=== PATIENT | male | born 1945 | race Hispanic/Latino ===

== ENCOUNTER → 2019-06-18 | Outpatient (CLI) | payer OTHER ==
[~2019-06-18] MED LIST: REGADENOSON 0.4 MG/5 ML PF SYG IVP SCH
== END | disposition home or self-care (01) ==
LOC: SHCH 07:44
PROVIDERS: ATTEND Internal Medicine Cardiovascular Disease
DX: I25.10 Atherosclerotic heart disease of native coronary artery without angina pectoris (principal); R60.9 Edema, unspecified; R07.9 Chest pain, unspecified
CPT/HCPCS: 78452; 93017; A9500 ×2; J2785; 96374

== ENCOUNTER 2020-07-21 06:49 | Day surgery (SDC) | payer OTHER ==
[2020-07-18 14:25] LABS: BASOPHILS % (AUTO) 0.2 % (0.0-5.0); HEMATOCRIT 29.1 % (42-54); LYMPHOCYTES % (AUTO) 13.6 % (21.0-51.0); MEAN CORPUSCULAR HEMOGLOBIN 28.4 pg (27.0-33.0); MEAN CORPUSCULAR HGB CONC 31.3 g/dL (32.0-36.0); MEAN CORPUSCULAR VOLUME 90.9 fL (79-99); MONOCYTES % (AUTO) 6.5 % (3.0-13.0); NEUTROPHILS % (AUTO) 77.3 % (40.0-77.0); PLATELET COUNT (AUTO) 219 K/uL (130-400); WHITE BLOOD COUNT (AUTO) 5.6 K/uL (4.8-10.8)
[2020-07-18 14:35] LABS: INR 1.06 (0.85-1.15); PROTHROMBIN TIME 11.5 SEC (9.6-11.6)
[2020-07-18 14:36] LABS: PARTIAL THROMBOPLASTIN TIME 29.4 SEC (26.3-35.5)
[2020-07-18 14:38] LABS: CREATININE 6.1 mg/dL (0.5-1.5); POTASSIUM 5.2 mmol/L (3.5-5.1)
[2020-07-20 14:10] VITALS: BP 171/73
[~2020-07-21] VITALS: Ht 177.8 cm; Wt 92.9 kg
[2020-07-21] VITALS (10 sets, daily range): BP systolic 136–176; BP diastolic 56–83
[~2020-07-21 06:49] MED LIST changes: +AEC81 PO; +ATOR40TA69 PO; +DOXA8TAB81 PO; +FELO5TAB PO; +FURO40TA5 PO; +GLIP5TAB11 PO; +LEVO75TA10 PO; +METO-408 PO; -REGADENOSON 0.4 MG/5 ML PF SYG IVP SCH
[2020-07-21] MEDS ORDERED: SODIUM CHLORIDE 0.9% 1000ML 1,000 ML IV ONE (07:53)
[2020-07-21] MEDS: CEFAZOLIN SODIUM 1 GM VIAL IVP SCH ×2 (09:00→11:20)
[2020-07-21] MEDS ORDERED: ROPIVACAINE 0.5% 5MG/ML 30ML IJ ONE (10:35)
[2020-07-21] MEDS ORDERED: MIDAZOLAM HCL 1 MG/ML 2ML VIAL ONE ×2 (11:08→11:18)
[2020-07-21] MEDS ORDERED: PROPOFOL 10 MG/ML 20ML VIAL IV ONE (11:18)
[2020-07-21] MEDS ORDERED: FENTANYL CITRATE PF 50 MCG/1 ML 2ML VIAL ONE (11:18)
== END 2020-07-21 14:05 | disposition home or self-care (01) ==
LOC: DAH 06:49
PROVIDERS: ATTEND Surgery Vascular Surgery
DX: N18.6 End stage renal disease (principal); E11.22 Type 2 diabetes mellitus with diabetic chronic kidney disease; I12.0 Hypertensive chronic kidney disease with stage 5 chronic kidney disease or end stage renal disease; E78.5 Hyperlipidemia, unspecified; E66.3 Overweight; D64.9 Anemia, unspecified; Z99.2 Dependence on renal dialysis; Z79.01 Long term (current) use of anticoagulants; Z98.890 Other specified postprocedural states; Z79.84 Long term (current) use of oral hypoglycemic drugs; Z79.82 Long term (current) use of aspirin; Z68.29 Body mass index [BMI] 29.0-29.9, adult; Z98.41 Cataract extraction status, right eye; Z98.42 Cataract extraction status, left eye
CPT/HCPCS: 36415; 36821; 64415; 76942; 80048; 82948 ×2; 85025; 85610; 85730; 86156; 86850; 86870; 86900; 86901; 87635; 93005; A4215; A4221; A4222; A4223; A4663; A4930; A6260; C1713 ×2; C9803; G0168; J0690; J1644; J2250 ×2; J2795; J3010; J7030; J2704

== ENCOUNTER 2020-08-09 11:19 | Emergency (ER) | payer OTHER ==
[~2020-08-09] VITALS: Ht 175.3 cm; Wt 95.3 kg
[2020-08-09 11:20] VITALS: BP 149/61
[2020-08-09 11:43] LABS: BASOPHILS % (AUTO) 0.4 % (0.0-5.0); HEMATOCRIT 25.5 % (42-54); MEAN CORPUSCULAR HEMOGLOBIN 29.4 pg (27.0-33.0); MEAN CORPUSCULAR HGB CONC 30.6 g/dL (32.0-36.0); MEAN CORPUSCULAR VOLUME 96.2 fL (79-99); MONOCYTES % (AUTO) 7.2 % (3.0-13.0); NEUTROPHILS % (AUTO) 73.7 % (40.0-77.0); NUCLEATED RED BLOOD CELLS 0.3 % (0.0-0.19); PLATELET COUNT (AUTO) 270 K/uL (130-400); RED BLOOD CELL COUNT(AUTO) 2.65 MIL/uL (4.50-6.20); WHITE BLOOD COUNT (AUTO) 7.6 K/uL (4.8-10.8)
[2020-08-09 11:58] LABS: CREATININE 7.7 mg/dL (0.5-1.5); POTASSIUM 4.9 mmol/L (3.5-5.1)
[2020-08-09 12:00] LABS: BILIRUBIN,TOTAL 0.4 mg/dL (0.2-1.0); TOTAL PROTEIN, SERUM 6.7 g/dL (6.0-8.3)
[2020-08-09 13:29] VITALS: BP 154/61
== END 2020-08-09 14:41 | disposition home or self-care (01) ==
LOC: EDH 11:19
DX: I12.9 Hypertensive chronic kidney disease with stage 1 through stage 4 chronic kidney disease, or unspecified chronic kidney disease (principal); N18.9 Chronic kidney disease, unspecified; D63.1 Anemia in chronic kidney disease; E11.22 Type 2 diabetes mellitus with diabetic chronic kidney disease; E78.00 Pure hypercholesterolemia, unspecified; Z79.899 Other long term (current) drug therapy; Z79.82 Long term (current) use of aspirin; Z99.2 Dependence on renal dialysis; Z98.890 Other specified postprocedural states; Z79.84 Long term (current) use of oral hypoglycemic drugs
CPT/HCPCS: 36415; 80053; 85025; 86156; 86850; 86870; 86900; 86901

== ENCOUNTER 2020-12-02 19:50 | Inpatient (IN) | payer OTHER ==
[~2020-12-02] VITALS: Ht 177.8 cm; Wt 95.6 kg
[2020-12-02] MEDS ORDERED: NITROGLYCERIN 1GM OINT 1 INCH/1GM TD ONE ×2 (20:08→21:00)
[2020-12-02] MEDS ORDERED: FUROSEMIDE 40MG VIAL ONE (20:08)
[2020-12-02] MEDS ORDERED: IPRATROPIUM/ALBUTEROL SULFATE 3 ML SOLUTION IH ONE ×2 (20:11→21:00)
[2020-12-02 20:16] LABS: BASOPHILS % (AUTO) 0.1 % (0.0-5.0); EOSINOPHILS % (AUTO) 2.2 % (0.0-8.0); HEMATOCRIT 30.5 % (42-54); LYMPHOCYTES % (AUTO) 5.3 % (21.0-51.0); MEAN CORPUSCULAR HEMOGLOBIN 29.8 pg (27.0-33.0); MEAN CORPUSCULAR HGB CONC 31.8 g/dL (32.0-36.0); MEAN CORPUSCULAR VOLUME 93.8 fL (79-99); MONOCYTES % (AUTO) 5.7 % (3.0-13.0); NEUTROPHILS % (AUTO) 86.3 % (40.0-77.0); PLATELET COUNT (AUTO) 114 K/uL (130-400); RED BLOOD CELL COUNT(AUTO) 3.25 MIL/uL (4.50-6.20); RED CELL DISTRIBUTION WIDTH 16.6 % (11.0-15.5); WHITE BLOOD COUNT (AUTO) 7.4 K/uL (4.8-10.8)
[2020-12-02 20:42] LABS: B-TYPE NATRIURETIC PEPTIDE 2680 pg/mL (0-100)
[2020-12-02 20:50] LABS: ALBUMIN 3.4 g/dL (3.5-5.0); BILIRUBIN,TOTAL 0.5 mg/dL (0.2-1.0); POTASSIUM 4.9 mmol/L (3.5-5.1); TOTAL PROTEIN, SERUM 6.9 g/dL (6.0-8.3)
[2020-12-02 20:56] LABS: CREATININE 11.1 mg/dL (0.5-1.5)
[2020-12-02] MEDS ORDERED: FUROSEMIDE 40MG VIAL IVP ONE (21:00)
[2020-12-02] MEDS ORDERED: LEVO75CA5 PO (23:19)
[2020-12-02] MEDS ORDERED: FELO5TAB48 PO (23:19)
[2020-12-02] MEDS ORDERED: METO25TA6 PO (23:19)
[2020-12-02] MEDS ORDERED: FURO40TA5 PO (23:19)
[2020-12-02] MEDS ORDERED: GLIP5TAB11 PO (23:19)
[2020-12-02] MEDS ORDERED: DOXA8TAB81 PO (23:19)
[2020-12-02] MEDS ORDERED: ATOR20TA65 PO (23:19)
[2020-12-03] VITALS (15 sets, daily range): BP systolic 160–181; BP diastolic 73–93
[2020-12-03] MEDS ORDERED: NITROGLYCERIN 0.4 MG SL TAB SL PRN
[2020-12-03] MEDS ORDERED: ONDANSETRON 4MG INJ IV PRN
[2020-12-03] MEDS ORDERED: MORPHINE 4 MG SYG IV PRN
[2020-12-03] MEDS ORDERED: DEXTROSE 50%-WATER 50 ML DISP.SYRIN IV ONE ×3 (00:42→11:00)
[2020-12-03] MEDS ORDERED: DEXTROSE 10%-WATER 1,000 ML IV ONE (00:44)
[2020-12-03] MEDS ORDERED: NACL 23.4% (4MEQ/ML) 30ML VIAL 154 MEQ in DEXTROSE 10%-WATER 961.5 ML IV STA (01:07)
[2020-12-03] MEDS: IPRATROPIUM/ALBUTEROL SULFATE 3 ML SOLUTION IH SCH ×5 (01:08→23:28)
[2020-12-03 02:35] LABS: BASOPHILS % (AUTO) 0.1 % (0.0-5.0); EOSINOPHILS % (AUTO) 1.1 % (0.0-8.0); HEMATOCRIT 30.5 % (42-54); MEAN CORPUSCULAR HEMOGLOBIN 29.1 pg (27.0-33.0); MEAN CORPUSCULAR HGB CONC 31.1 g/dL (32.0-36.0); MEAN CORPUSCULAR VOLUME 93.3 fL (79-99); MONOCYTES % (AUTO) 7.6 % (3.0-13.0); NEUTROPHILS % (AUTO) 85.9 % (40.0-77.0); PLATELET COUNT (AUTO) 120 K/uL (130-400); RED BLOOD CELL COUNT(AUTO) 3.27 MIL/uL (4.50-6.20); RED CELL DISTRIBUTION WIDTH 16.5 % (11.0-15.5); WHITE BLOOD COUNT (AUTO) 7.1 K/uL (4.8-10.8)
[2020-12-03 02:49] LABS: ALBUMIN 3.2 g/dL (3.5-5.0); BILIRUBIN,TOTAL 0.5 mg/dL (0.2-1.0); POTASSIUM 4.9 mmol/L (3.5-5.1); TOTAL PROTEIN, SERUM 6.7 g/dL (6.0-8.3)
[2020-12-03 02:50] LABS: CREATININE 11.4 mg/dL (0.5-1.5)
[2020-12-03 03:47] LABS: B-TYPE NATRIURETIC PEPTIDE 2190 pg/mL (0-100)
[2020-12-03] MEDS: HEPARIN 5,000 UNIT VIAL SQ SCH ×3 (04:13→19:21)
[2020-12-03] MEDS ORDERED: ASPIRIN 325MG TAB PO SCH (09:00)
[2020-12-03] MEDS: FUROSEMIDE 40MG VIAL IV SCH (09:00)
[2020-12-03] MEDS ORDERED: AMLODIPINE 5 MG TAB PO SCH (09:00)
[2020-12-03] MEDS ORDERED: EPOETIN ALFA-EPBX (ESRD) 10,000 UNIT/ML VIAL SQ SCH (09:30)
[2020-12-03] MEDS ORDERED: SOLU-MEDROL 125MG VIAL IVP ONE (11:00)
[2020-12-03] MEDS ORDERED: GLUCAGON 1MG KIT 1 MG ML IM PRN (11:00)
[2020-12-03] MEDS ORDERED: DEXTROSE 50%-WATER 50 ML DISP.SYRIN IV PRN ×2 (11:00→11:30)
[2020-12-03] MEDS ORDERED: SOLU-MEDROL 125MG VIAL ONE (11:02)
[2020-12-03] MEDS ORDERED: MIDODRINE HCL 5 MG TABLET PO PRN (11:30)
[2020-12-03] MEDS ORDERED: SOLU-MEDROL 125MG VIAL IVP SCH (11:30)
[2020-12-03 11:37] LABS: ABG BASE EXCESS -10.5 mmol/L (-2.0-3.0); ABG HCO3 14.3 mmol/L (21.0-28.0); ABG OXYGEN SATURATION 98.1 % (95.0-99.0); ABG PCO2 29 mmHg (35-48)
[2020-12-03] MEDS: DEXTROSE 10%-WATER 1,000 ML IV SCH ×2 (11:40→21:03)
[2020-12-03] MEDS ORDERED: SODIUM BICARB 50MEQ 50ML VIAL IV SCH (12:00)
[2020-12-03] MEDS: METOCLOPRAMIDE 10 MG/2 ML VIAL IVP SCH ×3 (12:44→21:03)
[2020-12-03] MEDS: PANTOPRAZOLE 40 MG/VIAL IVP SCH (12:45)
[2020-12-03 12:51] LABS: HEMATOCRIT 28.7 % (42-54)
[2020-12-03 13:15] LABS: HEMOGLOBIN A1C 6.1 % (4.0-6.0)
[2020-12-03 13:26] LABS: CHOLESTEROL 95 mg/dL (<200); HDL CHOLESTEROL 53 mg/dL (29-71); LDL DIRECT 45 mg/dL (0-99); TRIGLYCERIDES 33 mg/dL (30-200)
[2020-12-03] MEDS: HYDROCORTISONE SOD SUCCINATE 100 MG/2 ML VIAL IV SCH ×2 (13:49→21:03)
[2020-12-03] MEDS ORDERED: FURO80TA3 PO (15:43)
[2020-12-03] MEDS ORDERED: SODI650T PO (15:43)
[2020-12-03] MEDS ORDERED: FERS325 PO (15:44)
[2020-12-03] MEDS ORDERED: ASCO500C6 PO (15:45)
[2020-12-03] MEDS ORDERED: CALC-190 PO (15:45)
[2020-12-03] MEDS ORDERED: FURO20TA4 PO (15:46)
[2020-12-03] MEDS ORDERED: ATOR40TA69 PO (15:48)
[2020-12-03] MEDS ORDERED: GLIP5TAB11 PO (15:48)
[2020-12-03] MEDS ORDERED: DOXA4TAB3 PO (15:50)
[2020-12-03] MEDS ORDERED: SODI10PO2 PO (15:53)
[2020-12-03] MEDS ORDERED: IOHEXOL-350 75 ML VIAL IV ONE (16:08)
[2020-12-03 16:28] LABS: POTASSIUM 4.2 mmol/L (3.5-5.1)
[2020-12-03 16:30] LABS: CREATININE 8.8 mg/dL (0.5-1.5)
[2020-12-04] VITALS (18 sets, daily range): BP systolic 144–189; BP diastolic 70–93
[2020-12-04] MEDS: HEPARIN 5,000 UNIT VIAL SQ SCH ×3 (00:26→16:25)
[2020-12-04] MEDS: METOPROLOL SUCCINATE 50 MG TAB.SR.24H PO SCH ×3 (01:04→20:33)
[2020-12-04 05:15] LABS: LYMPHOCYTES % (AUTO) 6.6 % (21.0-51.0); MEAN CORPUSCULAR HEMOGLOBIN 30.2 pg (27.0-33.0); MEAN CORPUSCULAR VOLUME 94.3 fL (79-99); MONOCYTES % (AUTO) 4.6 % (3.0-13.0); NEUTROPHILS % (AUTO) 88.3 % (40.0-77.0); PLATELET COUNT (AUTO) 128 K/uL (130-400); RED BLOOD CELL COUNT(AUTO) 3.18 MIL/uL (4.50-6.20); RED CELL DISTRIBUTION WIDTH 16.3 % (11.0-15.5)
[2020-12-04 05:31] LABS: RETICULOCYTE % (AUTO) 1.4 % (0.42-2.23)
[2020-12-04 05:44] LABS: POTASSIUM 4.4 mmol/L (3.5-5.1); THYROID STIMULATING HORMONE 2.41 uIU/mL (0.36-3.74)
[2020-12-04 05:45] LABS: % IRON SATURATION 60.5 % (30-44)
[2020-12-04] MEDS: IPRATROPIUM/ALBUTEROL SULFATE 3 ML SOLUTION IH SCH ×4 (06:35→23:24)
[2020-12-04] MEDS: METOCLOPRAMIDE 10 MG/2 ML VIAL IVP SCH ×4 (06:37→20:33)
[2020-12-04] MEDS: Vitamin B Complex/Vit C/Folic Acid PO SCH (08:27)
[2020-12-04] MEDS: PANTOPRAZOLE 40 MG/VIAL IVP SCH (08:27)
[2020-12-04] MEDS: ASPIRIN 81 MG EC TAB PO SCH (08:27)
[2020-12-04] MEDS: FUROSEMIDE 40MG VIAL IV SCH (08:29)
[2020-12-04] MEDS: HYDROCORTISONE SOD SUCCINATE 100 MG/2 ML VIAL IV SCH ×3 (08:30→20:33)
[2020-12-04] MEDS ORDERED: SODIUM BICARBONATE 650 MG TAB PO SCH (09:00)
[2020-12-04] MEDS ORDERED: ASPIRIN 325MG TAB PO SCH (09:00)
[2020-12-04] MEDS: ZOSYN 3.375GM+NS 50ML 50 ML IV SCH ×2 (10:24→20:33)
[2020-12-04] MEDS ORDERED: ZOSYN 3.375GM +NS 50ML IV SCH (10:30)
[2020-12-04] MEDS: INSULIN HUMULIN R 100 UNIT/ML 3ML SQ SCH ×3 (12:07→20:34)
[2020-12-04 13:09] LABS: HEPATITIS Bs ANTIGEN SCREEN P Negative (Negative)
[2020-12-05] VITALS (20 sets, daily range): BP systolic 150–188; BP diastolic 68–99
[2020-12-05] MEDS: HEPARIN 5,000 UNIT VIAL SQ SCH ×3 (01:00→16:25)
[2020-12-05] MEDS: HYDROCORTISONE SOD SUCCINATE 100 MG/2 ML VIAL IV SCH ×4 (02:28→20:44)
[2020-12-05 04:07] LABS: BASOPHILS % (AUTO) 0.1 % (0.0-5.0); EOSINOPHILS % (AUTO) 0.8 % (0.0-8.0); HEMATOCRIT 27.8 % (42-54); LYMPHOCYTES % (AUTO) 7.5 % (21.0-51.0); MEAN CORPUSCULAR HEMOGLOBIN 29.3 pg (27.0-33.0); MEAN CORPUSCULAR HGB CONC 31.7 g/dL (32.0-36.0); MEAN CORPUSCULAR VOLUME 92.7 fL (79-99); MONOCYTES % (AUTO) 7.2 % (3.0-13.0); NEUTROPHILS % (AUTO) 83.6 % (40.0-77.0); PLATELET COUNT (AUTO) 165 K/uL (130-400); RED CELL DISTRIBUTION WIDTH 16.5 % (11.0-15.5); WHITE BLOOD COUNT (AUTO) 8.5 K/uL (4.8-10.8)
[2020-12-05 04:36] LABS: PHOSPHORUS 6.3 mg/dL (2.5-4.9); POTASSIUM 3.7 mmol/L (3.5-5.1)
[2020-12-05 04:48] LABS: CREATININE 7.9 mg/dL (0.5-1.5)
[2020-12-05] MEDS: INSULIN HUMULIN R 100 UNIT/ML 3ML SQ SCH ×4 (05:40→20:45)
[2020-12-05] MEDS: METOCLOPRAMIDE 10 MG/2 ML VIAL IVP SCH ×4 (05:42→20:44)
[2020-12-05] MEDS: IPRATROPIUM/ALBUTEROL SULFATE 3 ML SOLUTION IH SCH ×3 (06:18→18:29)
[2020-12-05] MEDS: Vitamin B Complex/Vit C/Folic Acid PO SCH (08:46)
[2020-12-05] MEDS: ASPIRIN 81 MG EC TAB PO SCH (08:46)
[2020-12-05 09:22] LABS: INR 1.26 (0.85-1.15); PROTHROMBIN TIME 13.4 SEC (9.6-11.6)
[2020-12-05 09:24] LABS: PARTIAL THROMBOPLASTIN TIME 31.2 SEC (26.3-35.5)
[2020-12-05] MEDS: PANTOPRAZOLE 40 MG/VIAL IVP SCH (10:18)
[2020-12-05] MEDS: ZOSYN 3.375GM+NS 50ML 50 ML IV SCH ×2 (10:21→20:43)
[2020-12-05] MEDS: METOPROLOL SUCCINATE 50 MG TAB.SR.24H PO SCH ×2 (10:22→20:44)
[2020-12-06] MEDS: IPRATROPIUM/ALBUTEROL SULFATE 3 ML SOLUTION IH SCH ×4 (00:22→19:07)
[2020-12-06] MEDS: HYDROCORTISONE SOD SUCCINATE 100 MG/2 ML VIAL IV SCH ×3 (02:13→21:01)
[2020-12-06] MEDS: HEPARIN 5,000 UNIT VIAL SQ SCH ×3 (02:16→21:09)
[2020-12-06 03:40] VITALS: BP 148/75
[2020-12-06 03:58] LABS: CREATININE 6.7 mg/dL (0.5-1.5); POTASSIUM 3.9 mmol/L (3.5-5.1)
[2020-12-06] MEDS: INSULIN HUMULIN R 100 UNIT/ML 3ML SQ SCH ×4 (06:07→21:09)
[2020-12-06] MEDS: METOCLOPRAMIDE 10 MG/2 ML VIAL IVP SCH ×4 (06:14→21:02)
[2020-12-06 07:30] VITALS: BP 183/77
[2020-12-06] MEDS: CALCIUM AC 667MG CAP PO SCH ×3 (08:04→17:54)
[2020-12-06] MEDS: PANTOPRAZOLE 40 MG/VIAL IVP SCH (08:04)
[2020-12-06] MEDS: Vitamin B Complex/Vit C/Folic Acid PO SCH (08:04)
[2020-12-06] MEDS: ASPIRIN 81 MG EC TAB PO SCH (08:04)
[2020-12-06] MEDS: METOPROLOL SUCCINATE 50 MG TAB.SR.24H PO SCH ×2 (08:05→21:02)
[2020-12-06] MEDS: ZOSYN 3.375GM+NS 50ML 50 ML IV SCH ×2 (08:07→21:01)
[2020-12-06 11:00] VITALS: BP 153/79
[2020-12-06 15:30] VITALS: BP 173/80
[2020-12-06 20:30] VITALS: BP 159/72
[2020-12-06 23:48] VITALS: BP 152/66
[2020-12-07] VITALS (26 sets, daily range): BP systolic 137–180; BP diastolic 64–98
[2020-12-07] MEDS: IPRATROPIUM/ALBUTEROL SULFATE 3 ML SOLUTION IH SCH ×4 (00:41→19:10)
[2020-12-07 04:04] LABS: HEMATOCRIT 27.4 % (42-54); MEAN CORPUSCULAR HEMOGLOBIN 29.2 pg (27.0-33.0); MEAN CORPUSCULAR HGB CONC 31.4 g/dL (32.0-36.0); MEAN CORPUSCULAR VOLUME 92.9 fL (79-99); RED BLOOD CELL COUNT(AUTO) 2.95 MIL/uL (4.50-6.20); WHITE BLOOD COUNT (AUTO) 7.5 K/uL (4.8-10.8)
[2020-12-07 04:16] LABS: CREATININE 7.2 mg/dL (0.5-1.5)
[2020-12-07] MEDS: INSULIN HUMULIN R 100 UNIT/ML 3ML SQ SCH ×4 (06:02→21:00)
[2020-12-07] MEDS: METOCLOPRAMIDE 10 MG/2 ML VIAL IVP SCH ×4 (06:02→22:08)
[2020-12-07] MEDS: HEPARIN 5,000 UNIT VIAL SQ SCH ×3 (06:03→22:10)
[2020-12-07] MEDS: LACTULOSE 20 GM/30 ML UDCUP PO PRN (06:53)
[2020-12-07] MEDS ORDERED: BISACODYL 10 MG SUPP.RECT RC PRN (07:00)
[2020-12-07] MEDS: ASPIRIN 81 MG EC TAB PO SCH (09:17)
[2020-12-07] MEDS: HYDROCORTISONE SOD SUCCINATE 100 MG/2 ML VIAL IV SCH (09:17)
[2020-12-07] MEDS: Vitamin B Complex/Vit C/Folic Acid PO SCH (09:17)
[2020-12-07] MEDS: PANTOPRAZOLE 40 MG/VIAL IVP SCH (09:17)
[2020-12-07] MEDS: METOPROLOL SUCCINATE 50 MG TAB.SR.24H PO SCH ×2 (09:17→22:08)
[2020-12-07] MEDS: ZOSYN 3.375GM+NS 50ML 50 ML IV SCH ×2 (09:17→22:07)
[2020-12-07] MEDS: CALCIUM AC 667MG CAP PO SCH ×3 (09:20→17:00)
[2020-12-07 11:47] LABS: INR 1.24 (0.85-1.15); PROTHROMBIN TIME 13.3 SEC (9.6-11.6)
[2020-12-07 11:48] LABS: PARTIAL THROMBOPLASTIN TIME 30.5 SEC (26.3-35.5)
[2020-12-07] MEDS ORDERED: HEPARIN 1,000 UNIT VIAL ONE (12:47)
[2020-12-07] MEDS ORDERED: LIDOCAINE HCL 1% MDV 50ML VIAL ONE (12:48)
[2020-12-07] MEDS ORDERED: HEPARIN 5,000 UNIT VIAL SQ PRN (17:00)
[2020-12-07] MEDS ORDERED: 0.9%NACL 1000ML 1,000 ML IV PRN (18:30)
[2020-12-08] VITALS (7 sets, daily range): BP systolic 151–186; BP diastolic 55–77
[2020-12-08] MEDS: IPRATROPIUM/ALBUTEROL SULFATE 3 ML SOLUTION IH SCH ×5 (00:27→23:04)
[2020-12-08 04:15] LABS: HEMATOCRIT 25.9 % (42-54); MEAN CORPUSCULAR HGB CONC 30.1 g/dL (32.0-36.0); MEAN CORPUSCULAR VOLUME 96.3 fL (79-99); PLATELET COUNT (AUTO) 168 K/uL (130-400); RED BLOOD CELL COUNT(AUTO) 2.69 MIL/uL (4.50-6.20); RED CELL DISTRIBUTION WIDTH 16.4 % (11.0-15.5); WHITE BLOOD COUNT (AUTO) 7.5 K/uL (4.8-10.8)
[2020-12-08 04:23] LABS: CREATININE 5.8 mg/dL (0.5-1.5); POTASSIUM 3.8 mmol/L (3.5-5.1)
[2020-12-08] MEDS: LACTULOSE 20 GM/30 ML UDCUP PO PRN (05:48)
[2020-12-08] MEDS: METOCLOPRAMIDE 10 MG/2 ML VIAL IVP SCH (05:48)
[2020-12-08] MEDS: HEPARIN 5,000 UNIT VIAL SQ SCH ×3 (05:49→21:58)
[2020-12-08] MEDS: INSULIN HUMULIN R 100 UNIT/ML 3ML SQ SCH ×4 (05:50→21:54)
[2020-12-08] MEDS: CALCIUM AC 667MG CAP PO SCH ×3 (10:01→16:52)
[2020-12-08] MEDS: ZOSYN 3.375GM+NS 50ML 50 ML IV SCH ×2 (10:01→19:27)
[2020-12-08] MEDS: METOPROLOL SUCCINATE 50 MG TAB.SR.24H PO SCH ×2 (10:01→19:27)
[2020-12-08] MEDS: PANTOPRAZOLE 40 MG/VIAL IVP SCH (10:01)
[2020-12-08] MEDS: ASPIRIN 81 MG EC TAB PO SCH (10:01)
[2020-12-08] MEDS: Vitamin B Complex/Vit C/Folic Acid PO SCH (10:01)
[2020-12-08] MEDS: ACETAMINOPHEN 325 MG TAB PO PRN (16:53)
[2020-12-08] MEDS ORDERED: METOPROLOL SUCCINATE 50 MG TAB.SR.24H PO ONE (19:26)
[2020-12-09] VITALS (21 sets, daily range): BP systolic 133–185; BP diastolic 57–80
[2020-12-09 03:57] LABS: HEMATOCRIT 24.8 % (42-54); MEAN CORPUSCULAR HEMOGLOBIN 28.9 pg (27.0-33.0); MEAN CORPUSCULAR HGB CONC 30.6 g/dL (32.0-36.0); MEAN CORPUSCULAR VOLUME 94.3 fL (79-99); RED BLOOD CELL COUNT(AUTO) 2.63 MIL/uL (4.50-6.20); RED CELL DISTRIBUTION WIDTH 16.2 % (11.0-15.5)
[2020-12-09 04:08] LABS: CREATININE 6.9 mg/dL (0.5-1.5); POTASSIUM 3.6 mmol/L (3.5-5.1)
[2020-12-09] MEDS: IPRATROPIUM/ALBUTEROL SULFATE 3 ML SOLUTION IH SCH ×3 (06:31→18:43)
[2020-12-09] MEDS: HEPARIN 5,000 UNIT VIAL SQ SCH ×3 (06:38→20:52)
[2020-12-09] MEDS: INSULIN HUMULIN R 100 UNIT/ML 3ML SQ SCH ×4 (06:41→20:52)
[2020-12-09] MEDS: LACTULOSE 20 GM/30 ML UDCUP PO PRN (06:41)
[2020-12-09] MEDS: CALCIUM AC 667MG CAP PO SCH ×3 (07:46→17:01)
[2020-12-09] MEDS: ZOSYN 3.375GM+NS 50ML 50 ML IV SCH (08:17)
[2020-12-09] MEDS: PANTOPRAZOLE 40 MG/VIAL IVP SCH (08:19)
[2020-12-09] MEDS: ASPIRIN 81 MG EC TAB PO SCH (08:20)
[2020-12-09] MEDS: METOPROLOL SUCCINATE 50 MG TAB.SR.24H PO SCH ×2 (08:20→20:47)
[2020-12-09] MEDS: Vitamin B Complex/Vit C/Folic Acid PO SCH (08:20)
[2020-12-10] MEDS: IPRATROPIUM/ALBUTEROL SULFATE 3 ML SOLUTION IH SCH ×5 (00:08→23:51)
[2020-12-10 03:59] VITALS: BP 158/67
[2020-12-10 04:00] LABS: HEMATOCRIT 24.5 % (42-54); MEAN CORPUSCULAR HEMOGLOBIN 29.3 pg (27.0-33.0); MEAN CORPUSCULAR HGB CONC 31.4 g/dL (32.0-36.0); MEAN CORPUSCULAR VOLUME 93.2 fL (79-99); RED BLOOD CELL COUNT(AUTO) 2.63 MIL/uL (4.50-6.20); RED CELL DISTRIBUTION WIDTH 16.2 % (11.0-15.5); WHITE BLOOD COUNT (AUTO) 9.8 K/uL (4.8-10.8)
[2020-12-10 04:15] LABS: CREATININE 5.3 mg/dL (0.5-1.5); POTASSIUM 3.9 mmol/L (3.5-5.1)
[2020-12-10] MEDS: HEPARIN 5,000 UNIT VIAL SQ SCH (05:41)
[2020-12-10] MEDS: INSULIN HUMULIN R 100 UNIT/ML 3ML SQ SCH ×4 (06:18→20:40)
[2020-12-10] MEDS: Vitamin B Complex/Vit C/Folic Acid PO SCH (08:04)
[2020-12-10] MEDS: ASPIRIN 81 MG EC TAB PO SCH (08:04)
[2020-12-10] MEDS: CALCIUM AC 667MG CAP PO SCH ×3 (08:04→17:11)
[2020-12-10] MEDS: PANTOPRAZOLE 40 MG/VIAL IVP SCH (08:05)
[2020-12-10] MEDS: METOPROLOL SUCCINATE 50 MG TAB.SR.24H PO SCH ×2 (08:05→20:38)
[2020-12-10 08:19] VITALS: BP 163/73
[2020-12-10] MEDS: ACETAMINOPHEN 325 MG TAB PO PRN (08:29)
[2020-12-10 10:47] VITALS: BP 154/64
[2020-12-10] MEDS ORDERED: ZOSYN 3.375GM +NS 50ML IV SCH (11:00)
[2020-12-10] MEDS: ZOSYN 3.375GM+NS 50ML 50 ML IV SCH ×2 (15:44→23:10)
[2020-12-10 16:17] VITALS: BP 158/72
[2020-12-10] MEDS ORDERED: VANCOMYCIN PROTOCOL PER PHARMACY IV SCH (16:30)
[2020-12-10] MEDS ORDERED: VANCOMYCIN 1G 1.5 GM in 0.9% NACL 250ML 250 ML IVPB SCH (17:00)
[2020-12-10] MEDS ORDERED: COMPOUND IV REFRIGERATED 1 EACH IVSOLN MISC PRN (17:30)
[2020-12-10 19:21] VITALS: BP 166/75
[2020-12-10 21:30] LABS: APPEARANCE,URINE Clear (CLEAR); BILIRUBIN,URINE Negative (NEGATIVE); COLOR,URINE Yellow (YELLOW); GLUCOSE, URINE (UA) 250 mg/dL (NEGATIVE); KETONES,URINE Trace mg/dL (NEGATIVE); LEUKOCYTE ESTERASE ,URINE Trace (NEGATIVE); NITRATE,URINE Negative (NEGATIVE); OCCULT BLOOD,URINE Small (NEGATIVE); PROTEIN,URINE >=1000 mg/dL (NEGATIVE)
[2020-12-10 22:02] LABS: BACTERIA,URINE Rare /HPF (None Seen); SQUAMOUS EPITHELIAL CELL,UR Moderate /HPF (0-2)
[2020-12-10 23:41] VITALS: BP 150/77
[2020-12-11 03:17] VITALS: BP 146/72
[2020-12-11] MEDS: INSULIN HUMULIN R 100 UNIT/ML 3ML SQ SCH ×4 (05:44→20:42)
[2020-12-11] MEDS: IPRATROPIUM/ALBUTEROL SULFATE 3 ML SOLUTION IH SCH ×3 (07:15→18:21)
[2020-12-11 07:59] VITALS: BP 156/81
[2020-12-11] MEDS: METOPROLOL SUCCINATE 50 MG TAB.SR.24H PO SCH ×2 (08:38→20:42)
[2020-12-11] MEDS: Vitamin B Complex/Vit C/Folic Acid PO SCH (08:38)
[2020-12-11] MEDS: CALCIUM AC 667MG CAP PO SCH ×3 (08:38→16:56)
[2020-12-11] MEDS: PANTOPRAZOLE 40 MG TAB DR PO SCH (08:38)
[2020-12-11] MEDS: ASPIRIN 81 MG EC TAB PO SCH (08:39)
[2020-12-11 11:13] VITALS: BP 175/82
[2020-12-11] MEDS: ZOSYN 3.375GM+NS 50ML 50 ML IV SCH ×2 (11:19→23:31)
[2020-12-11 16:10] VITALS: BP 153/65
[2020-12-11] MEDS: LACTULOSE 20 GM/30 ML UDCUP PO PRN (17:13)
[2020-12-11 20:44] VITALS: BP 154/73
[2020-12-11 23:26] VITALS: BP 161/70
[2020-12-12] VITALS (18 sets, daily range): BP systolic 147–196; BP diastolic 58–86
[2020-12-12] MEDS: IPRATROPIUM/ALBUTEROL SULFATE 3 ML SOLUTION IH SCH ×3 (00:52→11:03)
[2020-12-12] MEDS: INSULIN HUMULIN R 100 UNIT/ML 3ML SQ SCH ×2 (05:54→11:30)
[2020-12-12] MEDS: ASPIRIN 81 MG EC TAB PO SCH (08:56)
[2020-12-12] MEDS: METOPROLOL SUCCINATE 50 MG TAB.SR.24H PO SCH (08:56)
[2020-12-12] MEDS: CALCIUM AC 667MG CAP PO SCH ×2 (08:56→11:47)
[2020-12-12] MEDS: Vitamin B Complex/Vit C/Folic Acid PO SCH (08:56)
[2020-12-12] MEDS: PANTOPRAZOLE 40 MG TAB DR PO SCH (08:56)
[2020-12-12] MEDS ORDERED: HYDRALAZINE 20MG/ML VIAL IV PRN (11:30)
[2020-12-12] MEDS: ZOSYN 3.375GM+NS 50ML 50 ML IV SCH (11:47)
[2020-12-12] MEDS: ACETAMINOPHEN 325 MG TAB PO PRN (13:43)
== END 2020-12-12 15:00 | DRG 280 ==
LOC: EDH 19:50 → OBSVTOIN 23:49 → EDHIP 23:49 → 4AH 12-03 08:52
PROVIDERS: ADMIT Internal Medicine Critical Care Medicine; ATTEND Internal Medicine Critical Care Medicine
PROC: 5A09357 Assistance with Respiratory Ventilation, Less than 24 Consecutive Hours, Continuous Positive Airway Pressure (ICD-10-PCS; principal; 2020-12-02)
PROC: 0JH63XZ Insertion of Tunneled Vascular Access Device into Chest Subcutaneous Tissue and Fascia, Percutaneous Approach (ICD-10-PCS; 2020-12-02)
PROC: 02HV33Z Insertion of Infusion Device into Superior Vena Cava, Percutaneous Approach (ICD-10-PCS; 2020-12-02)
PROC: 5A09357 Assistance with Respiratory Ventilation, Less than 24 Consecutive Hours, Continuous Positive Airway Pressure (ICD-10-PCS; 2020-12-03)
PROC: 02HV33Z Insertion of Infusion Device into Superior Vena Cava, Percutaneous Approach (ICD-10-PCS; 2020-12-03)
PROC: 5A1D70Z Performance of Urinary Filtration, Intermittent, Less than 6 Hours Per Day (ICD-10-PCS; 2020-12-03)
PROC: 5A09357 Assistance with Respiratory Ventilation, Less than 24 Consecutive Hours, Continuous Positive Airway Pressure (ICD-10-PCS; 2020-12-04)
PROC: 5A1D70Z Performance of Urinary Filtration, Intermittent, Less than 6 Hours Per Day (ICD-10-PCS; 2020-12-04)
PROC: 5A09357 Assistance with Respiratory Ventilation, Less than 24 Consecutive Hours, Continuous Positive Airway Pressure (ICD-10-PCS; 2020-12-05)
PROC: 5A1D70Z Performance of Urinary Filtration, Intermittent, Less than 6 Hours Per Day (ICD-10-PCS; 2020-12-05)
PROC: 5A1D70Z Performance of Urinary Filtration, Intermittent, Less than 6 Hours Per Day (ICD-10-PCS; 2020-12-07)
PROC: 5A1D70Z Performance of Urinary Filtration, Intermittent, Less than 6 Hours Per Day (ICD-10-PCS; 2020-12-09)
PROC: 5A1D70Z Performance of Urinary Filtration, Intermittent, Less than 6 Hours Per Day (ICD-10-PCS; 2020-12-12)
DX: I13.2 Hypertensive heart and chronic kidney disease with heart failure and with stage 5 chronic kidney disease, or end stage renal disease (principal); N18.6 End stage renal disease; I21.4 Non-ST elevation (NSTEMI) myocardial infarction; G93.41 Metabolic encephalopathy; J96.01 Acute respiratory failure with hypoxia; I50.41 Acute combined systolic (congestive) and diastolic (congestive) heart failure; E27.40 Unspecified adrenocortical insufficiency; J81.1 Chronic pulmonary edema; N17.9 Acute kidney failure, unspecified; E11.22 Type 2 diabetes mellitus with diabetic chronic kidney disease; E87.70 Fluid overload, unspecified; R79.89 Other specified abnormal findings of blood chemistry; D63.1 Anemia in chronic kidney disease; E78.5 Hyperlipidemia, unspecified; M10.9 Gout, unspecified; E11.649 Type 2 diabetes mellitus with hypoglycemia without coma; E03.9 Hypothyroidism, unspecified; D69.6 Thrombocytopenia, unspecified; E66.9 Obesity, unspecified; E78.00 Pure hypercholesterolemia, unspecified; E83.39 Other disorders of phosphorus metabolism; I48.91 Unspecified atrial fibrillation; Z68.30 Body mass index [BMI] 30.0-30.9, adult; Z79.82 Long term (current) use of aspirin; Z79.84 Long term (current) use of oral hypoglycemic drugs; Z79.899 Other long term (current) drug therapy; Z83.3 Family history of diabetes mellitus; Z82.49 Family history of ischemic heart disease and other diseases of the circulatory system; Z20.822 Contact with and (suspected) exposure to COVID-19; S40.022A Contusion of left upper arm, initial encounter
CPT/HCPCS: 36415; 36558; 36600; 71045; 71275; 76604; 76770; 76882; 77001; 80048; 80053; 80061; 81001; 82550; 82607; 82728; 82746; 82803; 82948; 83036; 83874; 83880; 84100; 84145; 84443; 84484; 85014; 85018; 85025; 85027; 85378; 85610; 85730; 86701; 86704; 86706; 86850; 86900; 86901; 87040; 87088; 87340; 87390; 87635; 90935; 93005; 93306; 93356; 93970; 93971; 94640; 94660; 94664; 94760; 97039; 99291; C1750; C9113; C9803; G0378; J0360; J1644; J1720; J1815; J1940; J2543; J2765; J2930; J3370; J3490; J7030; J7050; J7070; J7131; Q9967

== ENCOUNTER → 2021-03-01 | Outpatient (CLI) | payer OTHER ==
[~2021-03-01] MED LIST changes: +CALC-190 PO; +DOXA4TAB3 PO; -DOXA8TAB81 PO; -FELO5TAB PO; +FERS325 PO; -FURO40TA5 PO; +FURO80TA3 PO; -GLIP5TAB11 PO; -METO-408 PO
== END | disposition home or self-care (01) ==
LOC: SHCH 14:30
PROVIDERS: ATTEND Internal Medicine Cardiovascular Disease
DX: I08.3 Combined rheumatic disorders of mitral, aortic and tricuspid valves (principal); I27.20 Pulmonary hypertension, unspecified; I48.91 Unspecified atrial fibrillation; I11.9 Hypertensive heart disease without heart failure; E11.9 Type 2 diabetes mellitus without complications; E78.5 Hyperlipidemia, unspecified
CPT/HCPCS: 93306

== ENCOUNTER → 2022-03-02 | Outpatient (CLI) | payer OTHER | END | disposition home or self-care (01) | LOC: SHCH 14:19 | PROVIDERS: ATTEND Internal Medicine Cardiovascular Disease | DX: I34.0 Nonrheumatic mitral (valve) insufficiency (principal) | CPT/HCPCS: 93306 ==

== ENCOUNTER → 2022-03-27 | Outpatient (CLI) | payer OTHER ==
[~2022-03-27] MED LIST changes: +REGADENOSON 0.4 MG/5 ML PF SYG IVP SCH
== END | disposition home or self-care (01) ==
LOC: SHCH 09:06
PROVIDERS: ATTEND Internal Medicine Cardiovascular Disease
DX: Z01.810 Encounter for preprocedural cardiovascular examination (principal); I49.3 Ventricular premature depolarization; N18.9 Chronic kidney disease, unspecified
CPT/HCPCS: 78452; 96374; 93017; J2785; A9500 ×2

== ENCOUNTER 2022-10-15 09:26 | Emergency (ER) | payer OTHER ==
[~2022-10-15] VITALS: Ht 177.8 cm; Wt 83.9 kg
[~2022-10-15 09:26] MED LIST changes: -REGADENOSON 0.4 MG/5 ML PF SYG IVP SCH
[2022-10-15 10:07] LABS: BASOPHILS # (AUTO) 0.01 K/uL (0.00-0.20); BASOPHILS % (AUTO) 0.2 % (0.0-5.0); EOSINOPHILS # (AUTO) 0.26 K/uL (0.00-0.70); EOSINOPHILS % (AUTO) 5.7 % (0.0-8.0); HEMATOCRIT 23.9 % (42-54); IMMATURE GRANULOCYTE ABSOLUTE 0.07 K/uL (0-1); LYMPHOCYTES # (AUTO) 1.4 K/uL (1.0-4.8); LYMPHOCYTES % (AUTO) 29.7 % (21.0-51.0); MEAN CORPUSCULAR HEMOGLOBIN 33.6 pg (27.0-33.0); MEAN CORPUSCULAR HGB CONC 33.1 g/dL (32.0-36.0); MEAN CORPUSCULAR VOLUME 101.7 fL (79-99); MONOCYTES # (AUTO) 0.4 K/uL (0.1-1.0); MONOCYTES % (AUTO) 9.5 % (3.0-13.0); NEUTROPHILS # (AUTO) 2.4 K/uL (1.8-7.7); NEUTROPHILS % (AUTO) 53.4 % (40.0-77.0); NUCLEATED RED BLOOD CELLS 0.7 % (0.0-0.19); PLATELET COUNT (AUTO) 174 K/uL (130-400); RED BLOOD CELL COUNT(AUTO) 2.35 MIL/uL (4.50-6.20); RED CELL DISTRIBUTION WIDTH 13.6 % (11.0-15.5); WHITE BLOOD COUNT (AUTO) 4.5 K/uL (4.8-10.8)
[2022-10-15 10:20] LABS: INR 1.05 (0.85-1.15); PROTHROMBIN TIME 12.1 SEC (9.6-11.6)
[2022-10-15 10:21] LABS: PARTIAL THROMBOPLASTIN TIME 36.1 SEC (26.3-35.5)
[2022-10-15 10:28] LABS: ALBUMIN 3.7 g/dL (3.5-5.0); BILIRUBIN,TOTAL 0.5 mg/dL (0.2-1.0); POTASSIUM 5.2 mmol/L (3.5-5.1); TOTAL PROTEIN, SERUM 7.5 g/dL (6.0-8.3)
[2022-10-15 10:38] LABS: CREATININE 11.9 mg/dL (0.5-1.5)
[2022-10-15 12:13] VITALS: BP 122/56; PULSE 78; RESP 18; O2SAT 98
== END 2022-10-15 12:14 | disposition home or self-care (01) ==
LOC: EDH 09:26
DX: E11.22 Type 2 diabetes mellitus with diabetic chronic kidney disease (principal); I12.0 Hypertensive chronic kidney disease with stage 5 chronic kidney disease or end stage renal disease; N18.6 End stage renal disease; D64.9 Anemia, unspecified; E78.00 Pure hypercholesterolemia, unspecified; Z79.82 Long term (current) use of aspirin; Z79.899 Other long term (current) drug therapy; Z98.890 Other specified postprocedural states; Z99.2 Dependence on renal dialysis
CPT/HCPCS: 36415; 80053; 82270; 85025; 85610; 85730; 86850; 86870; 86900; 86901